=== PATIENT | male | born 1985 | race Two or more races ===

== ENCOUNTER 2021-05-22 10:11 | Emergency (ER) | payer MEDICAID ==
[~2021-05-22 10:11] MED LIST: IBUPROFEN800 MG PO; KEFLEX500 MG PO; ONDANSETRON ODT4 MG SL; PERCOCET 5-3251 EACH PO
[2021-05-22 11:40] LABS: BASOPHIL 0.6 % (0-2); EOSINOPHIL 1.9 % (0-5); HCT 47.9 % (42.0-52.0); HGB 16.4 g/dl (13.2-18.0); LYMPHOCYTE 37.6 % (15-48); MCH 30.9 pg (25.0-31.0); MCHC 34.2 g/dL (32.0-36.0); MCV 90.2 fL (78.0-100.0); MONOCYTE 12.8 % (0-12); MPV 9.4 fL (6.0-9.5); NEUTROPHIL 46.9 % (41-80); NRBC 0; PLT 221 K/uL (150-400); RBC 5.31 M/uL (4.70-6.00); RDW 12.5 % (11.5-14.0); WBC 6.2 K/uL (4.0-10.5)
[2021-05-22 11:41] LABS: BILIRUBIN NEGATIVE (NEGATIVE); BLOOD TRACE-INTACT Ery/uL (NEGATIVE); CLARITY CLEAR (CLEAR); COLOR YELLOW (YELLOW); GLUCOSE (U) NORMAL (NORMAL); LEUKOCYTES NEGATIVE Leu/uL (NEGATIVE); NITRITE NEGATIVE (NEGATIVE); PROTEIN TRACE (LOW) mg/dL (NEGATIVE); SPECIFIC GRAVITY 1.025 (1.001-1.030); UROBILINOGEN 0.2 mg/dL (0.2-1.0)
[2021-05-22 11:48] LABS: MUCOUS MODERATE; URINARY WBC RARE
[2021-05-22 12:10] LABS: ALBUMIN 4.4 g/dL (3.4-5.0); BILIRUBIN - TOTAL 1.5 mg/dL (0.2-1.0); BUN/CREAT RATIO (CALC) 17.6 RATIO; CREATININE 0.91 mg/dL (0.67-1.17); GLOBULIN (CALCULATION) 4.1 g/dL; TOTAL PROTEIN 8.5 g/dL (6.4-8.2)
[2021-05-22] MEDS ORDERED: MOTRIN600 MG PO (15:04)
[2021-05-22] MEDS ORDERED: BACTRIM DS TAB1 EACH PO (15:04)
== END 2021-05-22 15:13 | disposition home or self-care (01) ==
LOC: FER 10:11
PROVIDERS: Emergency Medicine
DX: L03.314 Cellulitis of groin (principal)
CPT/HCPCS: 36415; 80053; 81001; 82150; 83690; 85025

== ENCOUNTER 2021-07-08 10:25 | Emergency (ER) | payer OTHER ==
[~2021-07-08 10:25] MED LIST changes: +BACTRIM DS TAB1 EACH PO; +MOTRIN600 MG PO
[2021-07-08] MEDS ORDERED: ANUCORT-HC25 MG PR (13:10)
== END 2021-07-08 13:22 | disposition home or self-care (01) ==
LOC: FER 10:25
DX: K64.9 Unspecified hemorrhoids (principal)
CPT/HCPCS: 99283